=== PATIENT | male | born 1995 | race Caucasian/White ===

== ENCOUNTER 2017-03-12 09:50 | Emergency (ER) | payer BC ==
[2017-03-12 10:04] VITALS: BP 151/71
[2017-03-12] MEDS ORDERED: Sodium Chloride 0.9% 1,000 ML IV STA (10:14)
[2017-03-12] MEDS ORDERED: Sodium Chloride 0.9% 10 ML Syringe FLUSH PRN (10:14)
[2017-03-12] MEDS ORDERED: Ketorolac 30 MG/ML SDV IVPUSH ONE (10:15)
[2017-03-12] MEDS ORDERED: diphenhydrAMINE 50 MG/ML SDV IVPUSH ONE (10:16)
--- NOTE | 2017-03-12 10:40 | EDM.PDOC ---
ED HPI GENERAL MEDICAL PROBLEM - General Chief Complaint: Abdominal Pain Stated Complaint: ABDOMINAL PAIN POST SHOULDER SURGERY Time Seen by Provider: 03/12/17 10:01 Source of Information: Reports: Patient, Family History Limitations: Reports: No Limitations - History of Present Illness INITIAL COMMENTS - FREE TEXT/NARRATIVE: The patient presents with constipation and abdominal pain. He had shoulder surgery on Wednesday without complications. He has been taking pain medications since then and some stool softeners. He forgot a few doses of stool softeners and now he feels he is constipated. He had his last BM on Wednesday or Wednesday. He has some nausea with it now. He has a headache. He has no numbness or weakness. He has no chest pain or shortness of breath. He has no fever or chills. Onset: Gradual Duration: Day(s): Location: Reports: Abdomen Quality: Reports: Sharp Severity: Severe Improves with: Reports: None Worsens with: Reports: None Context: Reports: Activity (Recent surgery) Associated Symptoms: Reports: Headaches, Nausea/Vomiting. Denies: Chest Pain, Cough, Fever/Chills, Shortness of Breath Abdomen Pain Score (Numeric/FACES): 6 - Related Data Allergies Allergy/AdvReac Type Severity Reaction Status Date / Time codeine Allergy Rash Verified 03/12/17 09:59 Home Meds: Home Meds Tapentadol HCl [Nucynta] 75 mg PO Q4H PRN 03/12/17 [History] Past Medical History HEENT History: Reports: Other (See Below) Other HEENT History: wisdom teeth Cardiovascular History: Reports: None Respiratory History: Reports: None Gastrointestinal History: Reports: None Genitourinary History: Reports: None Musculoskeletal History: Reports: None Neurological History: Reports: Concussion, Head Trauma Psychiatric History: Reports: None Endocrine/Metabolic History: Reports: None Oncologic (Cancer) History: Reports: None - Infectious Disease History Infectious Disease History: Reports: None - Past Surgical History HEENT Surgical History: Reports: Tonsillectomy Musculoskeletal Surgical History: Reports: Other (See Below) Other Musculoskeletal Surgeries/Procedures:: shoulder arthroscopy Social & Family History - Family History Family Medical History: Noncontributory - Tobacco Use Smoking Status *Q: Current Every Day Smoker Years of Tobacco use: 3 Packs/Tins Daily: 0.5 - Caffeine Use Caffeine Use: Reports: None - Recreational Drug Use Recreational Drug Use: No Drug Use in Last 12 Months: Yes Recreational Drug Type: Reports: Marijuana/Hashish Recreational Drug Use Frequency: Socially ED ROS GENERAL - Review of Systems Review Of Systems: See Below Constitutional: Reports: No Symptoms HEENT: Reports: No Symptoms Respiratory: Reports: No Symptoms Cardiovascular: Reports: No Symptoms Endocrine: Reports: No Symptoms GI/Abdominal: Reports: Abdominal Pain, Constipation, Nausea. Denies: Diarrhea, Vomiting : Reports: No Symptoms Musculoskeletal: Reports: No Symptoms ED EXAM, GI/ABD - Physical Exam Exam: See Below Exam Limited By: No Limitations General Appearance: Alert, Mild Distress Ears: Normal External Exam Nose: Normal Inspection Head: Atraumatic, Normocephalic Neck: Normal Inspection Respiratory/Chest: No Respiratory Distress, Lungs Clear, Normal Breath Sounds Cardiovascular: Regular Rate, Rhythm, No Edema, No Murmur GI/Abdominal Exam: Soft, No Organomegaly, No Mass, Tender (Mild generalized tenderness) Back Exam: Normal Inspection Extremities: Other (Left shoulder is bandaged and in a shoulder immobilizer) Course - Vital Signs Last Recorded V/S: Last Vital Signs Temp 97.2 F 03/12/17 10:00 Pulse 67 03/12/17 10:00 Resp 18 03/12/17 10:00 BP 151/71 H 03/12/17 10:00 Pulse Ox 98 03/12/17 10:00 - Orders/Labs/Meds Orders: Active Orders 24 hr Category Date Time Status Enema [RC] ASDIRECTED Care 03/12/17 10:31 Active Peripheral IV Care [RC] . DIRECTED Care 03/12/17 10:14 Active Abdomen 1V Upright [CR] Stat Exams 03/12/17 10:14 Taken Sodium Chloride 0.9% [Saline Flush] Med 03/12/17 10:14 Active 10 ml FLUSH ASDIRECTED PRN ED Antiemetic Medication Reflex [OM.PC] Stat Oth 03/12/17 10:14 Ordered Peripheral IV Insertion Adult [OM.PC] Stat Oth 03/12/17 10:14 Ordered Medication Orders Sodium Chloride (Saline Flush) 10 ml FLUSH ASDIRECTED PRN PRN Reason: Keep Vein Open Last Admin: 03/12/17 10:42 Dose: 10 ml Labs: Laboratory Tests 03/12/17 03/12/17 Range/Units 10:35 10:35 WBC 14.08 H (4.23-9.07) K/mm3 RBC 5.48 (4.63-6.08) M/mm3 Hgb 15.8 (13.7-17.5) gm/L Hct 44.5 (40.1-51.0) % MCV 81.2 (79.0-92.2) fl MCH 28.8 (25.7-32.2) pg MCHC 35.5 (32.2-35.5) g/dl RDW Std Deviation 37.7 (35.1-43.9) fL Plt Count 236 (163-337) K/mm3 MPV 9.9 (9.4-12.3) fl Neut % (Auto) 72.6 H (34.0-67.9) % Lymph % (Auto) 13.2 L (21.8-53.1) % Vance % (Auto) 10.8 (5.3-12.2) % Eos % (Auto) 2.7 (0.8-7.0) Baso % (Auto) 0.3 (0.1-1.2) % Neut # (Auto) 10.23 H (1.78-5.38) K/mm3 Lymph # (Auto) 1.86 (1.32-3.57) K/mm3 Vance # (Auto) 1.52 H (0.30-0.82) K/mm3 Eos # (Auto) 0.38 (0.04-0.54) K/mm3 Baso # (Auto) 0.04 (0.01-0.08) K/mm3 Manual Slide Review Normal smear Sodium 139 (136-145) mEq/L Potassium 3.2 L (3.5-5.1) mEq/L Chloride 102 (98-107) mEq/L Carbon Dioxide 26 (21-32) mEq/L Anion Gap 14.2 (5-15) BUN 13 (7-18) mg/dL Creatinine 1.1 (0.7-1.3) mg/dL Est Cr Clr Drug Dosing 97.99 mL/min Estimated GFR (MDRD) > 60 (>60) mL/min BUN/Creatinine Ratio 11.8 L (14-18) Glucose 112 H (74-106) mg/dL Calcium 9.8 (8.5-10.1) mg/dL Total Bilirubin 1.4 H (0.2-1.0) mg/dL AST 25 (15-37) U/L ALT 35 (16-63) U/L Alkaline Phosphatase 64 (46-116) U/L Total Protein 7.8 (6.4-8.2) g/dl Albumin 4.3 (3.4-5.0) g/dl Globulin 3.5 gm/dL Albumin/Globulin Ratio 1.2 (1-2) Lipase 124 (73-393) U/L Meds: Medications Generic Name Dose Route Start Last Admin Trade Name Freq PRN Reason Stop Dose Admin Sodium Chloride 10 ml 03/12/17 10:14 03/12/17 10:42 Saline Flush FLUSH 10 ml ASDIRECTED PRN Administration Keep Vein Open Discontinued Medications Generic Name Dose Route Start Last Admin Trade Name Freq PRN Reason Stop Dose Admin Diphenhydramine HCl 50 mg 03/12/17 10:16 03/12/17 10:39 Benadryl IVPUSH 03/12/17 10:17 50 mg ONETIME ONE Administration Sodium Chloride 1,000 mls @ 1,000 mls/hr 03/12/17 10:14 03/12/17 10:40 Normal Saline IV 03/12/17 11:13 1,000 mls/hr .BOLUS STA Administration Ketorolac Tromethamine 30 mg 03/12/17 10:15 03/12/17 10:41 Toradol IVPUSH 03/12/17 10:16 30 mg ONETIME ONE Administration Lorazepam 0.5 mg 03/12/17 11:12 03/12/17 11:20 Ativan IVPUSH 03/12/17 11:13 0.5 mg ONETIME ONE Administration Magnesium Citrate 100 ml 03/12/17 11:10 03/12/17 11:19 Citrate Of Magnesia PO 03/12/17 11:11 100 ml ONETIME ONE Administration Prochlorperazine Edisylate 10 mg 03/12/17 10:15 03/12/17 10:47 Compazine IVPUSH 03/12/17 10:16 10 mg ONETIME ONE Administration - Re-Assessments/Exams Free Text/Narrative Re-Assessment/Exam: 03/12/17 10:44 I ordered an IV NS 1L bolus, compazine 10mg IV, benadryl 50mg IV, toradol 30mg IV, abdominal x-ray and labs. His abdominal x-ray shows constipation. I will have my nurse do a soap suds enema. 03/12/17 12:06 He had some output with that and he feels better. His WBC was elevated at 14.08. His K was a little low at 3.2. His CMP was negative. His lipase was negative. His headache is better but he did not do well with the compazine. He was very anxious and agitated. I gave him some ativan and he did well. He feels better now. I will give him some magnesium citrate for at home. Departure - Departure Time of Disposition: 12:10 Disposition: Home, Self-Care 01 Condition: Good Clinical Impression: Constipation Qualifiers: Constipation type: drug induced constipation Qualified Code(s): K59.03 - Drug induced constipation Headache Qualifiers: Headache type: unspecified Headache chronicity pattern: acute headache Intractability: not intractable Qualified Code(s): R51 - Headache - Discharge Information Referrals: PCP,None [Primary Care Provider] - Forms: ED Department Discharge Additional Instructions: Drink 1/2 bottle of the magnesium citrate and if you do not have any bowel movement by 3 drink the rest. Try to only take tylenol, ibuprofen or aleve for pain but if you have to take pain meds take a stool softener. You had an adverse reaction to compazine. You should not have that again. Please return if you are worse such as more pain, nausea, and vomiting. - My Orders Last 24 Hours: My Active Orders 03/12/17 10:14 Peripheral IV Care [RC] . DIRECTED Abdomen 1V Upright [CR] Stat Sodium Chloride 0.9% [Saline Flush] 10 ml FLUSH ASDIRECTED PRN ED Antiemetic Medication Reflex [OM.PC] Stat Peripheral IV Insertion Adult [OM.PC] Stat 03/12/17 10:31 Enema [RC] ASDIRECTED - Assessment/Plan Last 24 Hours: My Active Orders 03/12/17 10:14 Peripheral IV Care [RC] . DIRECTED Abdomen 1V Upright [CR] Stat Sodium Chloride 0.9% [Saline Flush] 10 ml FLUSH ASDIRECTED PRN ED Antiemetic Medication Reflex [OM.PC] Stat Peripheral IV Insertion Adult [OM.PC] Stat 03/12/17 10:31 Enema [RC] ASDIRECTED
[2017-03-12] MEDS: Prochlorperazine 10 MG/2 ML SDV IVPUSH ONE ×2 (10:41→10:47)
[2017-03-12] MEDS ORDERED: Magnesium Citrate Solution 296 ML Bottle PO ONE (11:10)
[2017-03-12] MEDS ORDERED: LORazepam 2 MG/ML MDV IVPUSH ONE (11:12)
--- NOTE | 2017-03-12 12:28 | CR ---
Abdomen: Upright views of the abdomen were obtained. Comparison: Previous abdominal x-ray of 03/18/14. Scattered gas within nondilated small bowel is seen with multiple air-fluid levels. No free air is seen. Bony structures are unremarkable. No discrete soft tissue abnormality is seen. Impression: 1. Air-fluid levels within nondilated loops of small bowel. Gastroenteritis is a possibility. Findings at this time do not appear to be obstructive. 2. No free air is seen. Diagnostic code #3
== END 2017-03-12 12:25 | disposition home or self-care (01) ==
LOC: JD.ED 09:50
DX: K59.03 Drug induced constipation (principal); R51 Headache; F17.210 Nicotine dependence, cigarettes, uncomplicated; Z88.5 Allergy status to narcotic agent; Z98.890 Other specified postprocedural states
CPT/HCPCS: 36415; 74000; 80053; 83690; 85025; 96361; 96374; 96375; 99284; A9270; J0780; J1200; J1885; J2060; J7040; J7050

== ENCOUNTER 2019-02-16 15:41 | Emergency (ER) | payer BC ==
[2019-02-16 15:54] VITALS: BP 133/76; PULSE 54
[2019-02-16] MEDS ORDERED: Lactated Ringers 1,000 ML IV ONE (16:14)
[2019-02-16] MEDS ORDERED: Ondansetron 4 MG/2 ML SDV IVPUSH ONE (16:15)
[2019-02-16] MEDS ORDERED: Loperamide 2 MG Cap PO STA (16:15)
--- NOTE | 2019-02-16 16:18 | EDM.PDOC ---
ED HPI GENERAL MEDICAL PROBLEM - General Chief Complaint: Gastrointestinal Problem Stated Complaint: VOMITING/DIARRHEA Time Seen by Provider: 02/16/19 15:57 Source of Information: Reports: Patient, Significant Other (Girlfriend) History Limitations: Reports: No Limitations - History of Present Illness INITIAL COMMENTS - FREE TEXT/NARRATIVE: Mr. Ngo is a very pleasant 23-year-old man with no chronic medical problems , who states that he developed nausea, vomiting, and watery non-bloody diarrhea this past Wednesday morning, 02/14/2019. He has not had a fever. He reports feeling slightly lightheaded when upright. The patient reports eating a Caesar salad with ted lettuce from [employer] this past 02/10/2019. No similarly ill close contacts. No recent travel. No prior similar symptoms. The patient has been taking [id number] Pepto-Bismol, without relief of his symptoms. The patient does not have a PCP. He has not received an influenza vaccine this season, but agreed to receive one here. Headache Pain Score (Numeric/FACES): 3 - Related Data Allergies Allergy/AdvReac Type Severity Reaction Status Date / Time codeine Allergy Rash Verified 02/16/19 15:49 prochlorperazine Allergy Anxiety Verified 02/16/19 15:49 [From Compazine] Home Meds: Home Meds Ondansetron [Zofran ODT] 1 tab PO Q8H PRN #10 tab.dis 02/16/19 [Rx] Past Medical History - Past Surgical History HEENT Surgical History: Reports: Oral Surgery (wisdom teeth extraction), Tonsillectomy Musculoskeletal Surgical History: Reports: Shoulder Surgery (left, labrum and rotator cuff repair, arthroscopic, 2017) Social & Family History - Family History Family Medical History: Noncontributory - Tobacco Use Smoking Status *Q: Never Smoker Tobacco Use Within Last Twelve Months: Vaping (nicotine) - Caffeine Use Caffeine Use: Reports: Energy Drinks Caffeine Use Comment: redbull daily - Alcohol Use Alcohol Use History: Yes Alcohol Use Frequency: Rarely - Recreational Drug Use Recreational Drug Use: Yes Drug Use in Last 12 Months: No Recreational Drug Type: Reports: Marijuana/Hashish (last smoked August 2018) - Living Situation & Occupation Living situation: Reports: Single, Other (with friends) Occupation: Employed ([employer]) ED ROS GENERAL - Review of Systems Review Of Systems: Comprehensive ROS is negative, except as noted in HPI. ED EXAM, GI/ABD - Physical Exam Exam: See Below Exam Limited By: No Limitations General Appearance: Alert, WD/WN, No Apparent Distress Eyes: Bilateral: Normal Appearance, EOMI Ears: Normal External Exam, Hearing Grossly Normal Nose: Normal Inspection Throat/Mouth: Normal Inspection, Normal Lips, Normal Voice, No Airway Compromise Head: Atraumatic, Normocephalic Neck: Normal Inspection, Full Range of Motion Respiratory/Chest: No Respiratory Distress, Lungs Clear, Normal Breath Sounds, No Accessory Muscle Use Cardiovascular: Normal Peripheral Pulses, No Edema, No Gallop, No JVD, No Murmur , No Rub, Bradycardia (regular) GI/Abdominal Exam: Normal Bowel Sounds, Soft, Non-Tender, No Organomegaly, No Distention, No Abnormal Bruit, No Mass (Male) Exam: Deferred Rectal (Males) Exam: Deferred Back Exam: Normal Inspection, Full Range of Motion, NT Extremities: Normal Inspection, Normal Range of Motion, No Pedal Edema, Normal Capillary Refill Neurological: Alert, Oriented, Normal Cognition, No Motor/Sensory Deficits Psychiatric: Normal Affect Skin Exam: Warm, Dry, Intact, Normal Color, No Rash Course - Vital Signs Last Recorded V/S: Last Vital Signs Temp 36.9 C 02/16/19 15:50 Pulse 54 L 02/16/19 15:50 Resp 16 02/16/19 15:50 BP 133/76 02/16/19 15:50 Pulse Ox 97 02/16/19 15:50 Orthostatic Blood Pressure [ 124/76 Standing] Orthostatic Blood Pressure [ 115/64 Supine] - Orders/Labs/Meds Orders: Active Orders 24 hr Category Date Time Status Influenza Vaccine Charge [RC] .DISCHARGE Care 02/16/19 16:00 Active Orthostatic Vital Signs [RC] STAT Care 02/16/19 16:14 Active Lactated Ringers [Ringers, Lactated] 1,000 ml Med 02/16/19 16:14 Active IV .BOLUS Medication Orders Lactated Ringer's (Ringers, Lactated) 1,000 mls @ 999 mls/hr IV .BOLUS ONE Stop: 02/16/19 17:14 Last Admin: 02/16/19 16:44 Dose: 999 mls/hr Labs: Laboratory Tests 02/16/19 02/16/19 Range/Units 16:26 16:26 WBC 8.20 (4.23-9.07) K/mm3 RBC 5.57 (4.63-6.08) M/mm3 Hgb 16.0 (13.7-17.5) gm/dl Hct 45.1 (40.1-51.0) % MCV 81.0 (79.0-92.2) fl MCH 28.7 (25.7-32.2) pg MCHC 35.5 (32.2-35.5) g/dl RDW Std Deviation 38.4 (35.1-43.9) fL Plt Count 247 (163-337) K/mm3 MPV 9.9 (9.4-12.3) fl Neutrophils % (Manual) 70 H (40-60) % Band Neutrophils % 1 (0-10) % Lymphocytes % (Manual) 19 L (20-40) % Atypical Lymphs % 0 % Monocytes % (Manual) 5 (2-10) % Eosinophils % (Manual) 5 (0.8-7.0) % Basophils % (Manual) 0 L (0.2-1.2) Platelet Estimate Adequate RBC Morph Comment Normal Sodium 139 (136-145) mEq/L Potassium 3.8 (3.5-5.1) mEq/L Chloride 101 (98-107) mEq/L Carbon Dioxide 26 (21-32) mEq/L Anion Gap 15.8 H (5-15) BUN 15 (7-18) mg/dL Creatinine 1.0 (0.7-1.3) mg/dL Est Cr Clr Drug Dosing 105.96 mL/min Estimated GFR (MDRD) > 60 (>60) mL/min BUN/Creatinine Ratio 15.0 (14-18) Glucose 93 (74-106) mg/dL Calcium 9.1 (8.5-10.1) mg/dL Magnesium 1.9 (1.8-2.4) mg/dl Total Bilirubin 1.7 H (0.2-1.0) mg/dL AST 20 (15-37) U/L ALT 39 (16-63) U/L Alkaline Phosphatase 70 (46-116) U/L Total Protein 7.7 (6.4-8.2) g/dl Albumin 4.4 (3.4-5.0) g/dl Globulin 3.3 gm/dL Albumin/Globulin Ratio 1.3 (1-2) Meds: Medications Generic Name Dose Route Start Last Admin Trade Name Rajeshq PRN Reason Stop Dose Admin Lactated Ringer's 1,000 mls @ 999 mls/hr 02/16/19 16:14 02/16/19 16:44 Ringers, Lactated IV 02/16/19 17:14 999 mls/hr .BOLUS ONE Administration Discontinued Medications Generic Name Dose Route Start Last Admin Trade Name Freq PRN Reason Stop Dose Admin Influenza Virus Vaccine 1 each 02/16/19 16:00 02/16/19 16:46 Pharmacy To Dose - Influenza Vaccine IM 02/16/19 16:01 Not Given ONETIME ONE Influenza Virus Vaccine 30 mcg 02/16/19 16:15 02/16/19 16:56 Fluzone Quad Pedi Syringe IM 02/16/19 16:16 Not Given .ONCE ONE Influenza Virus Vaccine 60 mcg 02/16/19 17:00 02/16/19 17:02 Fluzone Quad Syringe IM 02/16/19 17:01 60 mcg .ONCE ONE Administration Loperamide HCl 4 mg 02/16/19 16:15 02/16/19 16:44 Imodium PO 02/16/19 16:16 4 mg ONETIME STA Administration Ondansetron HCl 4 mg 02/16/19 16:15 02/16/19 16:43 Zofran IVPUSH 02/16/19 16:16 4 mg ONETIME ONE Administration - Re-Assessments/Exams Free Text/Narrative Re-Assessment/Exam: 02/16/19 16:15 The patient is suffering from gastroenteritis. While the patient reports eating a Caesar salad with remain lettuce 6 days ago, his gastroenteritis is likely viral, since he has not had a fever and his diarrhea is non-bloody. I have ordered a workup that includes blood work and orthostatics, and in the meantime , he will be treated with IV fluid, oral loperamide, and IV Zofran. 02/16/19 17:02 The patient is not orthostatic. His CBC is unremarkable. His CMP is remarkable for a total bilirubin mildly elevated at 1.7, with the remainder of his CMP being unremarkable. The same level is within normal limits at 1.9. The patient's elevated total bilirubin is likely due to Gilbert syndrome. 02/16/19 17:08 Test results discussed with the patient and his girlfriend. The patient can safely be discharged home with a prescription for Zofran. He should stay adequately hydrated, and can take [id number] loperamide as needed for diarrhea. The patient will receive an influenza vaccine prior to discharge. Departure - Departure Time of Disposition: 17:08 Disposition: Home, Self-Care 01 Condition: Good Clinical Impression: Viral gastroenteritis - Discharge Information *PRESCRIPTION DRUG MONITORING PROGRAM REVIEWED*: Not Applicable *COPY OF PRESCRIPTION DRUG MONITORING REPORT IN PATIENT CAN: Not Applicable Referrals: PCP,None [Primary Care Provider] - Forms: ED Department Discharge Additional Instructions: You were seen in the emergency room after developing nausea, vomiting, and watery diarrhea on Wednesday morning. Workup in the ER included blood work and positional blood pressure checks. Your total bilirubin returned elevated at 1.7, indicating that you may have a condition called Gilbert's syndrome. The remainder of your workup was unremarkable. A prescription for the anti-nausea medicine Zofran has been sent to the [facility], located in the [facility] grocery store. Dissolve one tablet of Zofran on your tongue up to every 8 hours, as needed for nausea/vomiting. Stay adequately hydrated. Gatorade or Powerade are best. Because of your diarrhea, we recommend that you avoid juice and milk, as these can make diarrhea worse. If you are hungry, we recommend a bland diet, such as applesauce, toast, rice, or oatmeal. Chicken noodle soup with saltine crackers is an excellent choice. In addition to Zofran, you may also take [id number] loperamide (Imodium), 1 tablet after each loose bowel movement, to a maximum of 8 tablets within a 24- hour period. If any other problems, please do not hesitate to return to the ER. *You received an influenza vaccine during your ER visit.* - My Orders Last 24 Hours: My Active Orders 02/16/19 16:00 Influenza Vaccine Charge [RC] .DISCHARGE 02/16/19 16:14 Orthostatic Vital Signs [RC] STAT Lactated Ringers [Ringers, Lactated] 1,000 ml IV .BOLUS - Assessment/Plan Last 24 Hours: My Active Orders 02/16/19 16:00 Influenza Vaccine Charge [RC] .DISCHARGE 02/16/19 16:14 Orthostatic Vital Signs [RC] STAT Lactated Ringers [Ringers, Lactated] 1,000 ml IV .BOLUS
[2019-02-16] MEDS ORDERED: FLU Vacc QS2019-20(6MOS+)/PF 60 MCG/0.5 ML SYRINGE IM ONE (17:00)
== END 2019-02-16 18:02 | disposition home or self-care (01) ==
LOC: JD.ED 15:41
DX: A08.4 Viral intestinal infection, unspecified (principal); Z88.5 Allergy status to narcotic agent; Z88.8 Allergy status to other drugs, medicaments and biological substances; Z23 Encounter for immunization
CPT/HCPCS: 36415; 80053; 83735; 85007; 85027; 90471; 90686; 96361; 96374; 99284; A9270; J2405; J7120; 99283; G0008

== ENCOUNTER 2020-03-09 04:40 | Emergency (ER) | payer BC ==
[2020-03-09 04:51] VITALS: BP 119/78; PULSE 73
[2020-03-09] MEDS ORDERED: Ondansetron 4 MG/2 ML SDV IVPUSH ONE (05:31)
--- NOTE | 2020-03-09 05:33 | EDM.PDOC ---
ED HPI GENERAL MEDICAL PROBLEM - General Chief Complaint: Gastrointestinal Problem Stated Complaint: VOMITING Time Seen by Provider: 03/09/20 05:19 Source of Information: Reports: Patient History Limitations: Reports: No Limitations - History of Present Illness INITIAL COMMENTS - FREE TEXT/NARRATIVE: This is a 24-year-old male. He went out tonight to a bar had 2-3 [employer] [place] mixed drinks and the bars closed at 10 PM so he went over to [employer] and got some pizza. After that he started having some nausea and vomiting and he took some Tylenol I am not sure exactly why that he felt was and he is continued to have nausea and vomiting since about midnight. He comes to the ER because he feels like he is dehydrated and he has not stopped having nausea and vomiting. He denies any fever or chills prior to this he denies any urinary him's prior to this. No cough no congestion no sore throat throat. He is not having any abdominal pain presently. - Related Data Allergies Allergy/AdvReac Type Severity Reaction Status Date / Time codeine Allergy Rash Verified 03/09/20 04:51 prochlorperazine Allergy Anxiety Verified 03/09/20 04:51 [From Compazine] Home Meds: Home Meds Ondansetron [Zofran ODT] 1 tab PO Q8H PRN #10 tab.dis 02/16/19 [Rx] Ondansetron [Zofran] 4 mg PO Q6H PRN #15 tab 03/09/20 [Rx] Past Medical History HEENT History: Reports: Other (See Below) Other HEENT History: wisdom teeth Cardiovascular History: Reports: None Respiratory History: Reports: None Gastrointestinal History: Reports: None Genitourinary History: Reports: None Musculoskeletal History: Reports: None Neurological History: Reports: Concussion, Head Trauma Psychiatric History: Reports: None Endocrine/Metabolic History: Reports: None Oncologic (Cancer) History: Reports: None - Infectious Disease History Infectious Disease History: Reports: None - Past Surgical History HEENT Surgical History: Reports: Oral Surgery, Tonsillectomy Musculoskeletal Surgical History: Reports: Shoulder Surgery Other Musculoskeletal Surgeries/Procedures:: shoulder arthroscopy Social & Family History - Family History Family Medical History: No Pertinent Family History - Tobacco Use Tobacco Use Status *Q: Never Tobacco User Second Hand Smoke Exposure: No - Caffeine Use Caffeine Use: Reports: None Caffeine Use Comment: redbull daily - Recreational Drug Use Recreational Drug Use: No - Living Situation & Occupation Living situation: Reports: Single, Other (with friends) Occupation: Employed ([employer]) ED ROS GENERAL - Review of Systems Review Of Systems: See Below Constitutional: Denies: Fever, Chills HEENT: Reports: No Symptoms Respiratory: Reports: No Symptoms Cardiovascular: Reports: No Symptoms Endocrine: Reports: No Symptoms GI/Abdominal: Reports: Nausea, Vomiting. Denies: Abdominal Pain, Diarrhea : Reports: No Symptoms Musculoskeletal: Reports: No Symptoms Skin: Reports: No Symptoms Neurological: Reports: No Symptoms Psychiatric: Reports: No Symptoms Hematologic/Lymphatic: Reports: No Symptoms ED EXAM, GI/ABD - Physical Exam Exam: See Below Exam Limited By: No Limitations General Appearance: Alert, WD/WN, No Apparent Distress Eyes: Bilateral: Normal Appearance Ears: Normal External Exam Nose: Normal Inspection Throat/Mouth: Normal Lips, Normal Voice, No Airway Compromise Head: Normocephalic Neck: Supple Respiratory/Chest: No Respiratory Distress, Lungs Clear, Normal Breath Sounds Cardiovascular: Regular Rate, Rhythm, No Murmur GI/Abdominal Exam: Soft, Non-Tender, Other ('s are positive. Palpation of his abdomen does not reveal any tenderness) Back Exam: Full Range of Motion Extremities: Normal Inspection, Normal Range of Motion Neurological: Alert, Oriented Psychiatric: Normal Affect, Normal Mood Skin Exam: Warm, Dry Course - Vital Signs Last Recorded V/S: Last Vital Signs Temp 97.6 F 03/09/20 04:47 Pulse 73 03/09/20 04:47 Resp 18 03/09/20 04:47 BP 119/78 03/09/20 04:47 Pulse Ox 98 03/09/20 04:47 - Orders/Labs/Meds Orders: Active Orders 24 hr Category Date Time Status CBC WITH AUTO DIFF [HEME] Stat Lab 03/09/20 05:40 Results Sodium Chloride 0.9% [Normal Saline] 1,000 ml Med 03/09/20 05:45 Active IV ASDIRECTED Medication Orders Sodium Chloride (Normal Saline) 1,000 mls @ 1,000 mls/hr IV ASDIRECTED GHADA Last Admin: 03/09/20 05:39 Dose: 1,000 mls/hr Documented by: HUANG Labs: Laboratory Tests 03/09/20 03/09/20 Range/Units 05:40 05:40 WBC 14.10 H (4.23-9.07) K/mm3 RBC 5.02 (4.63-6.08) M/mm3 Hgb 14.3 D (13.7-17.5) gm/dl Hct 41.6 (40.1-51.0) % MCV 82.9 (79.0-92.2) fl MCH 28.5 (25.7-32.2) pg MCHC 34.4 (32.2-35.5) g/dl RDW Std Deviation 37.5 (35.1-43.9) fL Plt Count 269 (163-337) K/mm3 MPV 10.2 (9.4-12.3) fl Neut % (Auto) 76.5 H (34.0-67.9) % Lymph % (Auto) 13.6 L (21.8-53.1) % [place] % (Auto) 8.2 (5.3-12.2) % Eos % (Auto) 1.0 (0.8-7.0) Baso % (Auto) 0.5 (0.1-1.2) % Neut # (Auto) 10.79 H (1.78-5.38) K/mm3 Lymph # (Auto) 1.92 (1.32-3.57) K/mm3 [place] # (Auto) 1.15 H (0.30-0.82) K/mm3 Eos # (Auto) 0.14 (0.04-0.54) K/mm3 Baso # (Auto) 0.07 (0.01-0.08) K/mm3 Sodium 144 (136-145) mEq/L Potassium 3.5 (3.5-5.1) mEq/L Chloride 105 (98-107) mEq/L Carbon Dioxide 25 (21-32) mEq/L Anion Gap 17.5 H (5-15) BUN 14 (7-18) mg/dL Creatinine 1.0 (0.7-1.3) mg/dL Est Cr Clr Drug Dosing 105.05 mL/min Estimated GFR (MDRD) > 60 (>60) mL/min BUN/Creatinine Ratio 14.0 (14-18) Glucose 89 (74-106) mg/dL Calcium 8.7 (8.5-10.1) mg/dL Total Bilirubin 0.7 (0.2-1.0) mg/dL AST 29 (15-37) U/L ALT 52 (16-63) U/L Alkaline Phosphatase 49 (46-116) U/L Total Protein 7.7 (6.4-8.2) g/dl Albumin 4.4 (3.4-5.0) g/dl Globulin 3.3 gm/dL Albumin/Globulin Ratio 1.3 (1-2) Ethyl Alcohol 0.04 (0.00) gm% Meds: Medications Generic Name Dose Route Start Last Admin Trade Name Freq PRN Reason Stop Dose Admin Sodium Chloride 1,000 mls @ 1,000 mls/hr 03/09/20 05:45 03/09/20 05:39 Normal Saline IV 1,000 mls/hr ASDIRECTED GHADA Administration Discontinued Medications Generic Name Dose Route Start Last Admin Trade Name Freq PRN Reason Stop Dose Admin Ondansetron HCl 4 mg 03/09/20 05:31 03/09/20 05:40 Zofran IVPUSH 03/09/20 05:32 4 mg ONETIME ONE Administration - Re-Assessments/Exams Free Text/Narrative Re-Assessment/Exam: 03/09/20 06:40 Patient is feeling much better. He wants to try some liquids so we will give him some water as long as he takes that okay will be able to discharge him to home. His lab work came back looking fine his alcohol level is 0.04. 03/09/20 06:48 Patient is able to keep fluids down with no difficulty and no nausea. He wants to go home. Departure - Departure Time of Disposition: 06:48 Disposition: Home, Self-Care 01 Condition: Good Clinical Impression: Nausea and vomiting Qualifiers: Vomiting type: unspecified Vomiting Intractability: non-intractable Qualified Code(s): R11.2 - Nausea with vomiting, unspecified - Discharge Information *PRESCRIPTION DRUG MONITORING PROGRAM REVIEWED*: Not Applicable *COPY OF PRESCRIPTION DRUG MONITORING REPORT IN PATIENT CAN: Not Applicable Prescriptions: Ondansetron [Zofran] 4 mg PO Q6H PRN #15 tab PRN Reason: Vomiting Instructions: Nausea and Vomiting, Adult, [id number] Referrals: PCP,None [Primary Care Provider] - Forms: ED Department Discharge Additional Instructions: When you get home sleep and rest as much as possible, continue liquids with no sodas no caffeine, if you need to eat something be on a bland diet nothing that is hard to digest, no pizza, no meat, no vegetables just crackers, bananas, and you may have some fruit but no citrus, use the Zofran if the nausea comes back, return to the ER if needed Sepsis Event Note (ED) - Evaluation Sepsis Screening Result: No Definite Risk - Focused Exam Vital Signs: Vital Signs Temp Pulse Resp BP Pulse Ox 03/09/20 04:47 97.6 F 73 18 119/78 98 - My Orders Last 24 Hours: My Active Orders 03/09/20 05:40 CBC WITH AUTO DIFF [HEME] Stat 03/09/20 05:45 Sodium Chloride 0.9% [Normal Saline] 1,000 ml IV ASDIRECTED - Assessment/Plan Last 24 Hours: My Active Orders 03/09/20 05:40 CBC WITH AUTO DIFF [HEME] Stat 03/09/20 05:45 Sodium Chloride 0.9% [Normal Saline] 1,000 ml IV ASDIRECTED
[2020-03-09] MEDS ORDERED: Sodium Chloride 0.9% 1,000 ML IV SCH (05:45)
== END 2020-03-09 06:55 | disposition home or self-care (01) ==
LOC: JD.ED 04:40
DX: R11.2 Nausea with vomiting, unspecified (principal); Z88.5 Allergy status to narcotic agent; Z88.8 Allergy status to other drugs, medicaments and biological substances
CPT/HCPCS: 36415; 80053; 80307; 85025; 96374; 99284; J2405; J7030; 99283